=== PATIENT | female | born 1990 | race Caucasian/White ===

== ENCOUNTER → 2019-08-20 11:08 | Outpatient (CLI) | payer OTHER, SELFPAY ==
--- NOTE | 2019-08-20 | DI.US.S_ITS ---
PROCEDURE: US PELVIC COMPLETE INDICATIONS: MISSED TECHNIQUE: Real-time scanning was performed of the pelvic organs, with image documentation. Additional endovaginal scanning was necessary due to incomplete visualization of the adnexal and endometrial structures by transabdominal scanning. COMPARISON: None. FINDINGS: Transabdominal scanning: Limited scanning through the kidneys shows no hydronephrosis. No pathologic free abdominal or pelvic fluid. Endovaginal scanning: Uterus: Uterus is normal in size at 5.0 x 4.4 x 6.0 cm. Endometrium demonstrates appears irregular. There is increased vascularity surrounding the endometrium. There is fluid in the endometrial cavity measuring 2.1 x 1.1 x 1.5 cm. Ovaries: There is a large complex cyst in right ovary measuring 6.2 x 4.6 x 5.8 cm. Right ovary measures 5.1 x 6.4 x 6.3 cm. Left ovary measures 2.0 x 2.4 x 2.1 cm. There is both arterial and venous flow to both ovaries. IMPRESSION: 1. Endometrium appears irregular with increased vascularity surrounding endometrium. There is fluid in the endometrial cavity measuring 2.1 x 1.1 x 1.5 cm. Cannot rule out retained products of conception. Differential diagnoses include molar and endometritis. Please correlate clinically. 2. A large complex cyst in right ovary measuring 6.2 x 4.6 x 5.8 cm. Dictated by: Luna Garcia M.D. on 08/20/2019 at 12:20 Approved by: Luna Garcia M.D. on 08/20/2019 at 12:53
== END ==
PROVIDERS: Family Provider Physician Assistant; PCP Nurse Practitioner Family; Referring Provider Nurse Practitioner Family; Visit Provider Nurse Practitioner Obstetrics & Gynecology
DX: O02.1 Missed abortion (principal); N83.291 Other ovarian cyst, right side
CPT/HCPCS: 76830; 76856

== ENCOUNTER → 2020-02-15 09:14 | Outpatient (CLI) | payer OTHER, SELFPAY ==
--- NOTE | 2020-02-15 | DI.US.S_ITS ---
PROCEDURE: US OB >= 14 WEEKS FETUS INDICATIONS: ANATOMICAL SURVEY OUTSIDE/PRIOR DATING DATA: Last menstrual period (LMP): 09/28/19. LMP-based estimated date of delivery (JERRI): 07/04/20 . First dating scan (date and location): This examination . Estimated date of delivery (JERRI) from first dating scan: 07/03/20 TECHNIQUE: Real-time scanning was performed of the fetus, with image documentation and biometric measurements. Endovaginal scanning: Not performed COMPARISON: None. FINDINGS: General: A single living intrauterine gestation is present. Presentation: Variable. Placenta: Placental position is posterior , without previa. Amniotic fluid index: 15.9 cm cm, normal range is 5-24 cm. Largest pocket 6.1 cm heart rate: 147 beats per minute. Maternal cervical canal: 3.1 cm long. Normal lower limit is 2.5 cm. biometrics: Biparietal diameter: 4.9 cm, 20 weeks 5 days Head circumference: 17.4 cm, 19 weeks 6 days Abdominal circumference: 14.5 cm, 19 weeks 6 days Femur length: 3.2 cm, 19 weeks 6 days Estimated gestational age from initial scan: not applicable. Composite gestational age from present scan: 20 weeks 1 day Estimated weight and percentile: 317 g, 37th percentile Measurement variability for biometric dating: +/- 7 days from 14 weeks to 15 weeks 6 days gestation, +/- 10 days from 16 weeks to 21 weeks 6 days gestation, +/- 2 weeks from 22 weeks to 27 weeks 6 days gestation, +/- 3 weeks for 28 weeks gestation or later. weight reference: 4500 g or EFW >90/95% is considered macrosomia or large for gestational age. EFW <10% is small for gestational age. EFW 5% or less is considered intra-uterine growth restriction. Anatomic survey: Neuro: Ventricles are non-dilated at less than 10 mm. Cisterna magna is normal at 3-11 mm. Cerebellum is normal in size and morphology. Nuchal skin fold: Prominent measuring 5.2 mm. Technically normal at less than 6 mm between 14-21 weeks gestational age. Face: Nose and lips, facial profile are normal. Spine: No evidence for spina bifida. Heart: 4-chambered heart is present, with normal ventricular outflow tracts. Diaphragm: Diaphragm is intact. Stomach: Left-sided stomach is present. Kidneys: No hydronephrosis. Normal is less than 5 mm in 2nd trimester, less than 7 mm in 3rd trimester. Cord: 3-vessel cord has orthotopic insertion. Bladder: Normal in size. Extremities: All 4 extremities identified. IMPRESSION: Single living intrauterine fetus in variable presentation. Estimated gestational age by today's ultrasound measurements equals 20 weeks 1 day, concordant with LMP as above. Normal anatomic survey. Dictated by: Abimael Paris M.D. on 02/15/2020 at 12:42 Approved by: Abimael Paris M.D. on 02/15/2020 at 17:44
== END ==
PROVIDERS: Family Provider Physician Assistant; PCP Nurse Practitioner Family; Referring Provider Nurse Practitioner Obstetrics & Gynecology; Visit Provider Nurse Practitioner Obstetrics & Gynecology
DX: Z36.89 Encounter for other specified antenatal screening (principal); Z3A.20 20 weeks gestation of pregnancy
CPT/HCPCS: 76811

== ENCOUNTER → 2020-04-04 07:11 | Outpatient (CLI) | payer OTHER, SELFPAY ==
[2020-04-04 08:21] LABS: Hematocrit 37.7 % (36-46); Mean Corpuscular HGB Conc 34.5 % (30-36); Mean Corpuscular Hemoglobin 32.7 PG (26-34); Mean Corpuscular Volume 94.7 fL (80-100); Platelet Count 156 X10^3/uL (150-400); Red Blood Cell Count 3.97 X10^6/uL (4.0-5.2); Red Cell Distribution Width 12.9 % (11.6-14.8); White Blood Cell Count 10.8 X10^3/uL (4.5-11.0)
[2020-04-04 09:16] LABS: Glucose Fasting 71 mg/dL (70-100)
[2020-04-04 09:55] LABS: Glucose 1 Hour 101 mg/dL (70-170)
[2020-04-04 09:55] LABS: Glucose Tol Interpretation INTERPRETATION
[2020-04-04 11:05] LABS: Glucose 2 Hour 65 mg/dL (70-140)
== END ==
PROVIDERS: Family Provider Physician Assistant; PCP Nurse Practitioner Family; Referring Provider Nurse Practitioner Obstetrics & Gynecology; Visit Provider Nurse Practitioner Obstetrics & Gynecology
DX: Z34.90 Encounter for supervision of normal pregnancy, unspecified, unspecified trimester (principal); Z13.1 Encounter for screening for diabetes mellitus; Z3A.26 26 weeks gestation of pregnancy
CPT/HCPCS: 36415; 82951; 82952; 85027

== ENCOUNTER → 2020-06-06 14:25 | Outpatient (ROUT) | payer OTHER, SELFPAY | PROVIDERS: Family Provider Physician Assistant; PCP Nurse Practitioner Family; Visit Provider Nurse Practitioner Obstetrics & Gynecology | DX: Z34.90 Encounter for supervision of normal pregnancy, unspecified, unspecified trimester (principal); Z36.85 Encounter for antenatal screening for Streptococcus B; Z3A.36 36 weeks gestation of pregnancy | CPT/HCPCS: 87081 ==

== ENCOUNTER 2020-07-03 10:02 | Outpatient (CLI) | payer OTHER, SELFPAY ==
[2020-07-03 10:46] LABS: Add Manual Diff / Slide Review NO; Basophils Absolute Auto 0 /uL (0-100); Basophils Percent Auto 0.3 % (0-2); Eosinophils Absolute Auto 0 /uL (0-450); Eosinophils Percent Auto 0.5 % (2-4); Hematocrit 40.2 % (36-46); Hemoglobin 13.7 g/dL (12.0-16.0); Lymphocytes Absolute Auto 2100 /uL (1100-4500); Lymphocytes Percent Auto 21.1 % (25-40); Mean Corpuscular HGB Conc 34.1 % (30-36); Mean Corpuscular Hemoglobin 32.4 PG (26-34); Monocytes Absolute Auto 700 /uL (0-900); Monocytes Percent Auto 7.1 % (3-14); Neutrophils Absolute Auto 7000 /uL (1500-7000); Platelet Count 136 X10^3/uL (150-400); Red Blood Cell Count 4.23 X10^6/uL (4.0-5.2); Red Cell Distribution Width 13.4 % (11.6-14.8); White Blood Cell Count 9.8 X10^3/uL (4.5-11.0)
--- NOTE | 2020-07-03 10:49 | PM.OBTRLD ---
Visit Information Visit Information Date of evaluation: 07/03/20 Primary OB Provider: Asha Dean On-call OB Provider: Asha Dean Reason for Evaluation: Yes other Comments/Additional reasons for admission: 30YO @ [id number] by LMP and early US presents for evlauation of elevated BP in clinic today. +Fm and mld, irregular ctx. No Vb or LOF. No HORTON, vision changes, RUQ pain or increased edema. Vital Signs Vital Signs: BP 133/92, [id number], RR16/min, T98.2F Temporal PFSH Medical History (Updated 07/03/20 @ 11:25 by Asha Dean CNM) Hypothyroid in , antepartum Surgical History (Updated 07/03/20 @ 10:54 by Asha Dean CNM) History of tonsillectomy Family History (Updated 07/03/20 @ 10:54 by Asha Dean CNM) Father Hypertension Social History (Updated 07/03/20 @ 10:54 by Asha Dean CNM) marital status: household members: spouse lives independently: Yes caregiver/support person: No housing: house education level: college occupational status: employed Review of Systems Review of Systems ROS: Yes All systems reviewed with the patient and are negative except as otherwise documented Exam Vital Signs (past 8 hours): See above. Serial BPs: 128/87, 126/87 Presentation: vertex Objective Labs Result Diagrams: 07/03/20 10:22 07/03/20 10:22 Labs: Laboratory Results - last 24 hr 07/03/20 10:22 WBC 9.8 RBC 4.23 Hgb 13.7 Hct 40.2 MCV 95.0 MCH 32.4 MCHC 34.1 RDW 13.4 Plt Count 136 L Neut % (Auto) 71.0 Lymph % (Auto) 21.1 L [place] % (Auto) 7.1 Eos % (Auto) 0.5 L Baso % (Auto) 0.3 Neut # (Auto) 7000 Lymph # (Auto) 2100 [place] # (Auto) 700 Eos # (Auto) 0 Baso # (Auto) 0 Evaluation Evaluation Baseline heart rate: 125 Variability: Moderate (11-25) monitor accelerations: Present monitor decelerations: Absent Contraction Frequency (minutes): 4 Uterine Contraction Intensity: Mild Category of Tracing: Reactive Cervical dilation (cm): 2 Cervical effacement (%): 80 station: -2 Laboratory results: Laboratory Tests 07/03/20 10:22 WBC 9.8 RBC 4.23 Hgb 13.7 Hct 40.2 MCV 95.0 MCH 32.4 MCHC 34.1 RDW 13.4 Plt Count 136 L Neut % (Auto) 71.0 Lymph % (Auto) 21.1 L [place] % (Auto) 7.1 Eos % (Auto) 0.5 L Baso % (Auto) 0.3 Neut # (Auto) 7000 Lymph # (Auto) 2100 [place] # (Auto) 700 Eos # (Auto) 0 Baso # (Auto) 0 Diagnosis, Plan/Disposition Final Diagnosis (1) Elevated BP without diagnosis of hypertension: Status: Acute Problem details: Discharge to home with routine precautions. Follow-up in clinic 07/05/20, as scheduled. (2) Thrombocytopenia affecting , antepartum: Status: Acute Problem details: will recheck on labor admission
[2020-07-03 10:58] LABS: Aspartate Aminotransferase 34 IU/L (14-36); BUN Creatinine Ratio 22.7 (6-22); Blood Urea Nitrogen 15 mg/dL (7-17); Estimated Glomerular Filt Rate > 60.0 mL/min (>60); Protein (Total) Urine Random 12 mg/dL (0-12); Protein Creatinine Ratio Urine 0.24 GRAM/24H; Uric Acid 5.3 mg/dL (2.5-6.2)
== END 2020-07-03 11:27 | disposition home or self-care (01) ==
LOC: LABOR 11:20 → OB 07-04 09:22
PROVIDERS: Family Provider Physician Assistant; PCP Nurse Practitioner Family; Referring Provider Nurse Practitioner Obstetrics & Gynecology; Visit Provider Nurse Practitioner Obstetrics & Gynecology
DX: O99.113 Other diseases of the blood and blood-forming organs and certain disorders involving the immune mechanism complicating pregnancy, third trimester (principal); R03.0 Elevated blood-pressure reading, without diagnosis of hypertension; Z3A.39 39 weeks gestation of pregnancy; D69.6 Thrombocytopenia, unspecified
CPT/HCPCS: 36415; 59025; 82570; 84156; 84450; 84550; 85025; G0378; G0379

== ENCOUNTER 2020-07-03 19:08 | Inpatient (IN) | payer OTHER, SELFPAY ==
--- NOTE | 2020-07-03 19:16 | PM.OBHP.1 ---
OB HPI Date/Time Date of admission: 07/03/20 Date Patient Seen: 07/03/20 Time Patient Seen: 19:00 History of Present Condition Chief complaint: EVAL OF LABOR : 2 Para: 0 Estimated Date of Delivery: 07/04/20 Estimated Gestational Age (weeks): 39.6 Narrative: Jacque Orr is a 30 year old female @ [id number] by LMP and early US who presents for evaluation of labor. Has been feeling mild contractions all afternoon. Went for a walk and noticed SROM, copious clear fluid, with a stronger contraction @1745. Contractions immediately strengthened and have been every 2 minutes. Having trouble coping, breathing through strong contractions. Uncomplicated PN care w/ CNM. Planning lo intervention , requesting epidural now. , Julio, is present and supportive. History of Present care: good care, initiated at week # (8), number of visits (11) and pounds weight gain (39) Dating criteria: LMP confirmed by 1st trimester US Ultrasounds: normal mid trimester US Obstetrical complications: none and other Medical complications: other (hypothyroid- stable on levothyroxine) Narrative: Elevated BP without diagnosis of HTN in clinic today Preadmission Labs Blood type: A (+) positive -: Antibody screen: negative, GBS status: negative, HBsAG: negative, HIV: negative and RPR/VDLR: negative -: Chlamydia screen: not detected and Gonorrhea screen: not detected -: Rubella: immune HCT: 37.7 HCAB: negative 3 hr GTT: 2 hr (71/101/65) Prior (ies) History: 05/22/19: SAB @ 9wks Evaluation Evaluation Baseline heart rate: 120 Variability: Moderate (11-25) monitor accelerations: Present monitor decelerations: Early Contraction Frequency (minutes): 2 Uterine Contraction Intensity: Strong/Firm Status: Category l Cervical dilation (cm): 4 Cervical effacement (%): 90 station: -1 Comments: Gross SROM, clear PFSH Medical History Hypothyroid in , antepartum Surgical History History of tonsillectomy Family History Father Hypertension Social History marital status: household members: spouse lives independently: Yes caregiver/support person: No housing: house education level: college occupational status: employed Smoking Status: Never smoker Meds Home Medications and Allergies Home Medications Medication Instructions Recorded Confirmed Type levothyroxine [Synthroid] 75 mcg PO DAILY 07/03/20 07/03/20 History Allergies Allergy/AdvReac Type Severity Reaction Status Date / Time amoxicillin Allergy Intermediate Rash Verified 07/03/20 19:19 Review of Systems Review of Systems ROS: Yes All systems reviewed with the patient and are negative except as otherwise documented Exam Vital Signs (past 8 hours): BP 127/85, HR 71bpm, T 36.0C Temporal Resp Effort & Inspection: normal respiratory effort Auscultation: clear to auscultation bilaterally Cardio Rate: regular rate Rhythm: regular rhythm Heart Sounds: S1 normal and S2 normal Presentation: vertex Objective Labs Result Diagrams: 07/03/20 19:30 Assessment and Plan Assessment and Plan Assessment and Plan narrative: A:Term [place] in active labor GBS prophylaxis not indicated Cat I FHR P: Admit, routine orders w/ STAT COVID screening now. Epidural MARGIE. Labor support PRN. Anticipate NSVB.
[2020-07-03 19:44] VITALS: BP 127/85
[2020-07-03 19:59] LABS: Add Manual Diff / Slide Review NO; Basophils Absolute Auto 100 /uL (0-100); Basophils Percent Auto 0.8 % (0-2); Eosinophils Absolute Auto 0 /uL (0-450); Eosinophils Percent Auto 0.2 % (2-4); Hematocrit 43.4 % (36-46); Lymphocytes Absolute Auto 2800 /uL (1100-4500); Lymphocytes Percent Auto 19.3 % (25-40); Mean Corpuscular HGB Conc 34.6 % (30-36); Mean Corpuscular Hemoglobin 32.8 PG (26-34); Mean Corpuscular Volume 94.7 fL (80-100); Monocytes Absolute Auto 800 /uL (0-900); Monocytes Percent Auto 5.3 % (3-14); Neutrophils Absolute Auto 10800 /uL (1500-7000); Neutrophils Percent Auto 74.4 % (50-75); Platelet Count 169 X10^3/uL (150-400); Red Blood Cell Count 4.58 X10^6/uL (4.0-5.2); Red Cell Distribution Width 13.3 % (11.6-14.8); White Blood Cell Count 14.5 X10^3/uL (4.5-11.0)
[2020-07-03 20:11] LABS: COVID19 -Nasal RAPID Negative (Negative)
--- NOTE | 2020-07-03 22:01 | P.PCNOB_ITS ---
Labor & Delivery Delivery date: 07/03/20 Intrapartal Events: None Cervical ripening method: none Induction method: none Delivery monitor: external FHT and external uterine Route of delivery: L&D Laceration Description: Vaginal - 2nd Degree Delivery repair: chromic (3.0) Anesthesia Type: Epidural Narrative: Patient progressed quickly to spontaneous urge to push and was 9cm when anesthesia arrived. Was motivated for epidural enough to maintain good positioning during placement and achieved good relief. Was checked after epidural placement: C/C/+1. Enjoyed epidural for a few minutes, then began pushing with good progress with minimal coaching. NSVB of a vigorous baby girl in KWAME position w/ manual reduction of a compound left hand. There was no NC and no additional maneuvers needed for delivery of the shoulders. was placed on maternal abdomen by FOB who assisted after the shoulders delivered. N ewborn was placed on maternal chest for drying and skin to skin. 30 units of pitocin in 500mL LR was started at 250mL/hr for AMTSL. After cessation of pulsation, the cord was double clamped by CNM and cut by FOB. Hospital cord blood hold sample was collected. Gentle cord traction and single maternal push led to spontaneous, Schultze delivery of an apparently intact placenta, membranes and 3VC. Fundus immediately firm and bleeding minimal. Inspection revealed a short 2nd degree vaginal laceration which was repaired w/ 3.0 Chromic in the usual fashion under good epidural anesthesia. QBL 225mL. both mother and baby stable and skin to skin as I left the room. Baby 1: Infant gender: Female Presentation: vertex Position: Left Occiput Anterior Placenta delivery description: Spontaneous Cord Vessel Description: 3 Vessels score (1 min): 9 score (5 min): 9 weight: 3.4 kg Narrative: 3386grams/7#7.4oz Plan for aftercare: Routine care
[2020-07-03] MEDS: KETOROLAC 30 MG/ML VIAL IV (23:13)
[2020-07-04] MEDS: IBUPROFEN 600 MG TABLET PO ×2 (05:05→14:34)
[2020-07-04] MEDS: LEVOTHYROXINE 75 MCG TABLET PO (07:59)
[2020-07-04] MEDS: PRENATAL VIT,CALC/IRON/FOLIC 1 TABLET 1 TAB PO (08:05)
[2020-07-04] MEDS: DOCUSATE 100 MG CAPSULE PO (08:05)
--- NOTE | 2020-07-04 10:20 | PM.OBDS.1 ---
Discharge Providers Provider Date of admission: 07/03/20 19:08 Discharge Date: 07/04/20 Primary care physician: AALIYAH Valentine Consults: 07/04/20 21:55 Consult to Engineer Third Assistant Routine Comment: Discharge provider: Asha Dean CNM Summary Discharge Diagnosis (1) Second degree perineal laceration during delivery: Status: Acute Problem Details: Perineum intact. 2nd degree vaginal laceration. Ambulating in room, showered and dressed in her own clothes. Voiding and ambulating independently. Tolerating general diet. Pain well controlled w/ PO meds. Lochia light, no clots. is improving, using nipple shield and working w/ sleepy baby, max 10 minute feeds. Time Spent with Patient Time attestation: Total time spent providing and/or coordinating discharge services: Objective Labs Result Diagrams: 07/03/20 19:30 Labs: Laboratory Results - last 24 hr 07/03/20 07/03/20 07/03/20 19:30 19:30 19:30 WBC 14.5 H RBC 4.58 Hgb 15.0 Hct 43.4 MCV 94.7 MCH 32.8 MCHC 34.6 RDW 13.3 Plt Count 169 Neut % (Auto) 74.4 Lymph % (Auto) 19.3 L [place] % (Auto) 5.3 Eos % (Auto) 0.2 L Baso % (Auto) 0.8 Neut # (Auto) 20357 H Lymph # (Auto) 2800 [place] # (Auto) 800 Eos # (Auto) 0 Baso # (Auto) 100 SARS-CoV-2 (PCR) Negative Blood Type A Positive Antibody Screen Negative Exam Vital Signs (past 8 hours): BP 120/69, HR 66bpm, RR 16/min, T97.9F Temporal Other: Fundus firm @ u-3, lochia scant, minimal perineal edema Discharge Plan Discharge Plan Patient Disposition: Home Discharge orders & Medications Prescriptions: New ibuprofen 600 mg Tablet 600 mg PO Q6HR PRN (Reason: Pain, Mild (1-3)) 14 Days Qty: 60 RF: 0 Continued levothyroxine [Synthroid] 75 mcg tablet 75 mcg PO DAILY RF: 0 Follow up/Referrals: Eufemia Woods ARNP [Primary Care Provider] - Asha Dean CNM [[facility] [employer] [facility]] - (Follow-up @ 2 weeks by Telehealth, as scheduled Follow-up @ 6 weeks in office, as scheduled) Diet/Activity/Treatments Diet: Regular Activity: pelvic rest x 6 weeks Skin/Wound/Dressing Care Report to your healthcare provider any signs of infection, such as:: chills, fever, increased pain, unusual drainage and unusual redness Visit Report/Discharge Packet Instructions: DI for Depression Discharge Data Primary Care Provider: Eufemia Woods
[2020-07-04 11:44] VITALS: BP 108/76; PULSE 64; RESP 17; TEMP 36.7
[2020-07-04 12:04] VITALS: BP 108/76; PULSE 64; RESP 17; TEMP 36.7
[2020-07-04] MEDS: LANOLIN OINT 7 GM 1 APPLIC TOP (12:36)
[2020-07-04 14:34] VITALS: TEMP 37.1
[2020-07-04 14:40] VITALS: BP 133/87; PULSE 64; RESP 17; TEMP 37.1
== END 2020-07-04 18:18 | disposition home or self-care (01) | DRG 806 ==
PROVIDERS: Admitting Provider Nurse Practitioner Obstetrics & Gynecology; Family Provider Physician Assistant; PCP Nurse Practitioner Family; Referring Provider Nurse Practitioner Obstetrics & Gynecology; Visit Provider Nurse Practitioner Obstetrics & Gynecology
DX: O32.6XX0 Maternal care for compound presentation, not applicable or unspecified (principal); O99.12 Other diseases of the blood and blood-forming organs and certain disorders involving the immune mechanism complicating childbirth; Z37.0 Single live birth; Z3A.39 39 weeks gestation of pregnancy; O70.1 Second degree perineal laceration during delivery; D69.6 Thrombocytopenia, unspecified; R03.0 Elevated blood-pressure reading, without diagnosis of hypertension
CPT/HCPCS: 01967; 36415; 59025; 59050; 82570; 84156; 84450; 84550; 85025; 86850; 86900; 86901; 87635; C9803; G0379; J1885

== ENCOUNTER → 2020-10-31 11:13 | Outpatient (CLI) | payer OTHER, SELFPAY ==
[2020-10-31 13:36] LABS: Thyroid Stimulating Hormone 0.871 uIU/mL (0.47-4.68)
== END ==
PROVIDERS: Family Provider Physician Assistant; PCP Nurse Practitioner Family; Referring Provider Nurse Practitioner Obstetrics & Gynecology; Visit Provider Nurse Practitioner Obstetrics & Gynecology
DX: E03.9 Hypothyroidism, unspecified (principal)
CPT/HCPCS: 36415; 84436; 84443

== ENCOUNTER → 2022-10-14 10:12 | Outpatient (CLI) | payer OTHER, SELFPAY ==
--- NOTE | 2022-10-14 | DI.US.S_ITS ---
PROCEDURE: US OB >= 14 WEEKS FETUS INDICATIONS: ANATOMY OUTSIDE/PRIOR DATING DATA: Last menstrual period (LMP): 05/16/2022. LMP-based estimated date of delivery (JERRI): 02/20/2023. First dating scan (date and location): 10/14/2022. Estimated date of delivery (JERRI) from first dating scan: 02/19/2023. The calculations are made using the working JERRI of 02/20/2023. TECHNIQUE: Real-time scanning was performed of the fetus, with image documentation and biometric measurements. Endovaginal scanning: Not performed COMPARISON: [facility], OB >= 14 WEEKS FETUS, 02/15/2020, 9:28. FINDINGS: General: A single living intrauterine gestation is present. Presentation: Vertex. Placenta: Placental position is anterior , without previa. Lower placental edge 2 cm or less from internal cervical os qualifies as low lying placenta. Amniotic fluid index: 13.7 cm, normal range is 5-24 cm. Single deepest vertical pocket is 4.4 cm. heart rate: 150 beats per minute. Maternal cervical canal: 4.9 cm long. Normal lower limit is 2.5 cm. biometrics: Biparietal diameter: 5.1 cm, 21 weeks 3 days Head circumference: 19.1 cm, 21 weeks 3 days Abdominal circumference: 17.6 cm, 22 weeks 4 days Femur length: 3.6 cm, 21 weeks 4 days Clinically estimated gestational age: 21 weeks 4 days Composite gestational age from present scan: 21 weeks 5 days Estimated weight and percentile: 471 g, 69th percentile Anatomic survey: Neuro: Ventricles are non-dilated at less than 10 mm. Cisterna magna is normal at 3-11 mm. Cerebellum is normal in size and morphology. Nuchal skin fold: Normal at less than 6 mm between 14-21 weeks gestational age. Face: Nose and lips, facial profile are normal. Spine: No evidence for spina bifida. Heart: 4-chambered heart is present, with normal ventricular outflow tracts. Diaphragm: Diaphragm is intact. Stomach: Left-sided stomach is present. Kidneys: No hydronephrosis. Normal is less than 5 mm in 2nd trimester, less than 7 mm in 3rd trimester. Cord: 3-vessel cord has orthotopic insertion. Bladder: Normal in size. Extremities: All 4 extremities identified. IMPRESSION: 1. Living 2nd trimester intrauterine with no sonographic evidence of complications. Current ultrasound age is 1 day greater than clinical age based on LMP. 2. Normal 2nd trimester anatomy study. We strive to produce accurate, complete, and clear reports of imaging services. To assist us in improving patient care, this report was composed using standard report templates and voice recognition software. Therefore, it may contain abnormal punctuation, insertions and/or omissions. Occasional wrong-word or sound-alike substitutions may occur. Though we review the report and make efforts to correct it, we do recommend that the report be read carefully in proper context to recognize any text inaccuracies. Dictated by: Quan Kong M.D. on 10/14/2022 at 16:14 Approved by: Quan Kong M.D. on 10/14/2022 at 16:19
== END ==
PROVIDERS: Family Provider Physician Assistant; PCP Nurse Practitioner Family; Referring Provider Nurse Practitioner Obstetrics & Gynecology; Visit Provider Nurse Practitioner Obstetrics & Gynecology
DX: Z34.92 Encounter for supervision of normal pregnancy, unspecified, second trimester (principal); Z3A.21 21 weeks gestation of pregnancy
CPT/HCPCS: 76811

== ENCOUNTER 2023-02-13 01:02 | Inpatient (IN) | payer OTHER, SELFPAY ==
--- NOTE | 2023-02-13 01:23 | PM.OBHP.1 ---
OB HPI Date/Time Date of admission: 02/13/23 Date Patient Seen: 02/13/23 Time Patient Seen: 01:24 History of Present Condition Chief complaint: labor : 3 Para: 1 Estimated Date of Delivery: 02/20/23 Estimated Gestational Age (weeks): 39w0d Narrative: Jacque Orr is a 32 year old female at 39w0d by early ultrasound corresponding with LMP and long (30-35 day) menstrual cycles. She has had a complicated by low potassium, hypothyroidism and has a history of depression. She takes daily potassium, 50 mg sertraline and 50 mcg of levothyroxine. Jacque has one daughter, born term in 2020 and a history of a miscarriage in 2019. She tested GBS negative at 36 weeks and her blood type is A positive. Her first labor was relatively fast, so she has arrived this time before things are too crazy. [place] baby drop into her pelvis Tuesday. Contractions began between 1999 and 2099, but were irregular at that time. She called CNM approx 0030 with regular contractions becoming more intense, wanting admission to the hospital. Membrane are intact. She is undecided about epidural at this time. Baby is a surprise sex! History of Present care: good care, initiated at week # (7), number of visits (10) and pounds weight gain (40) Dating criteria: based on 1st trimester US only (confirmed by LMP with long cycles) Ultrasounds: normal 1st trimester US and normal mid trimester US Obstetrical complications: none Medical complications: psychiatric (history of depression, still taking sertraline) and other (Hypothyroidism in ) Preadmission Labs Blood type: A (+) positive -: Antibody screen: negative, Cystic fibrosis screen: unknown, GBS status: negative, HBsAG: negative, HIV: negative, HSV 1: negative, HSV 2: negative and RPR/VDLR: negative -: Chlamydia screen: not detected and Gonorrhea screen: not detected -: Rubella: immune and Varicella: immune HCT: 35.9 (at 28 weeks) PAP: Normal (HPV negative) Quad screen: Normal (MsAFP negative) 1 hr GTT: 79 Prior (ies) History: 05/2019 SAB at 9 weeks 06/2020 NSVB at 39 weeks of baby girl, 3385g Evaluation Evaluation Baseline heart rate: 145 Variability: Moderate (11-25) monitor accelerations: Present Monitor Decelerations: Absent Contraction Frequency (minutes): 2 (2-5) Uterine Contraction Intensity: Moderate Status: Category l Comments: Jacque declines SVE at this time [facility] Medical History (Updated 02/13/23 @ 01:41 by Rosana Adam CNM, [employer]) Depression Elevated BP without diagnosis of hypertension Hypothyroid in , antepartum depression associated with first Second degree perineal laceration during delivery Thrombocytopenia affecting , antepartum Surgical History History of tonsillectomy Family History Father Hypertension Social History marital status: household members: spouse lives independently: Yes caregiver/support person: No housing: house education level: college occupational status: employed Smoking Status: Never smoker Meds Home Medications and Allergies Home Medications Medication Instructions Recorded Confirmed Type levothyroxine 75 mcg tablet 75 mcg PO DAILY 07/03/20 07/03/20 History (Synthroid) sertraline 50 mg PO DAILY depression 02/13/23 02/13/23 History Allergies Allergy/AdvReac Type Severity Reaction Status Date / Time amoxicillin Allergy Intermediate Rash Verified 07/03/20 19:19 Review of Systems Review of Systems Narrative: All negative except as mentioned in HPI. OB Exam Vital signs Blood Pressure: 133/86 Pulse Rate: 69 Respiratory Rate: 18 Temperature: 97.2 F Resp Effort & Inspection: normal respiratory effort, able to speak in complete sentences and symmetric chest movement Auscultation: clear to auscultation bilaterally Cardio Rate: regular rate Rhythm: regular rhythm Presentation: vertex Estimated Weight (lbs): 8 Amniotic Fluid: no fluid Objective Labs 02/13/23 01:45 Assessment and Plan Assessment and Plan Assessment and Plan narrative: Term in early labor GBS neg Rh pos History of precipitous labor Early labor Hypothyroidism in History of depression Depression FHR Cat 1 Admit to L&D Sertraline daily at 2100 Levothyroxine daily at 0600 Intermittent auscultation d/t Cat 1 strip on admission Pain medication as desired SVE planned if contractions slow Anticipate NSVB
[2023-02-13 01:55] LABS: Add Manual Diff / Slide Review NO; Basophils Absolute Auto 100 /uL (0-100); Basophils Percent Auto 0.8 % (0-2); Eosinophils Absolute Auto 0 /uL (0-450); Eosinophils Percent Auto 0.4 % (2-4); Hematocrit 35.2 % (36-46); Hemoglobin 12.3 g/dL (12.0-16.0); Lymphocytes Absolute Auto 2400 /uL (1100-4500); Lymphocytes Percent Auto 24.2 % (25-40); Mean Corpuscular HGB Conc 34.8 % (30-36); Mean Corpuscular Hemoglobin 31.5 PG (26-34); Mean Corpuscular Volume 90.5 fL (80-100); Monocytes Absolute Auto 800 /uL (0-900); Monocytes Percent Auto 8.1 % (3-14); Neutrophils Absolute Auto 6500 /uL (1500-7000); Neutrophils Percent Auto 66.5 % (50-75); Platelet Count 175 X10^3/uL (150-400); Red Cell Distribution Width 12.8 % (11.6-14.8); White Blood Cell Count 9.7 X10^3/uL (4.5-11.0)
[2023-02-13 01:56] VITALS: BP 133/86; PULSE 69; RESP 18; TEMP 36.2
[2023-02-13 02:43] VITALS: BP 133/86
--- NOTE | 2023-02-13 04:20 | PM.OBPRVD ---
Labor & Delivery Delivery date: 02/13/23 Intrapartal Events: Precipitous Labor < 3 hours Cervical ripening method: none Induction method: none Delivery monitor: external FHT Route of delivery: L&D Laceration Description: None Quantitative Blood Loss: 150 Anesthesia Type: None (epidural being prepared when SROM) Narrative: I was called to the room when Jacque became uncomfortable with lots of pressure in her rectum and was requesting epidural. RN prepared her for epidural, and while waiting for anesthesia, contractions became even more intense. While sitting for epidural, but prior to placement, Jacque felt a pop with SROM, laid down and vertex was visible at introitus. Jacque felt the spontaneous urge to push at 0338 and pushed effectively for 1 contraction to deliver the head, and then with the second contraction, NSVB of baby at 0342, shoulders delivered easily. Baby was placed on maternal abdomen when Jacque was ready to receive him. Apgars 9/9. Placenta delivered spontaneously with maternal efforts and appeared to be intact. 3 vessel cord clamped and cut by Julio at 10 minutes of life after cord pulsing had stopped. Cord blood collected for blood typing. Perineum inspected and found to be intact. Blood loss measured and estimated loss is 150 mL. Mom and baby left stable and is being initiated. Jacque and Julio are thrilled to meet their son. Rosnaa FISCHER, EMANI, IBCLC Baby 1: Infant gender: Male Presentation: vertex Position: Right Occiput Anterior Placenta delivery description: Spontaneous Cord Vessel Description: 3 Vessels score (1 min): 9 score (5 min): 9 Plan for aftercare: Routine care
--- NOTE | 2023-02-13 04:38 | P.DS_ITS ---
Discharge Providers Provider Date of admission: 02/13/23 01:02 Discharge Date: 02/13/23 Primary care physician: AALIYAH Valentine Consults: 02/13/23 01:17 Consult to Anesthesiology Urgent Comment: Consulting Provider: Anesthesiologist Reason for consultation: Epidural Has provider been notified: No Discharge provider: Rosana Adam CNM, ARNP Summary Hospital Course Date Patient Seen: 02/13/23 Time Patient Seen: 16:15 Diagnoses: Z34.04, Z39.1, Hospital Course: Jacque arrived in early labor. Progressed well without interventions or labor augmentation for precipitous NSVB. Normal course. . Peripartum Data Delivery Method: Natural Vaginal Laceration Description: None [place] 1: Gender: Male Disposition of : home Status at Discharge Cognitive/behavioral status at discharge: oriented Time Spent with Patient Time attestation: Total time spent providing and/or coordinating discharge services: Objective Labs 02/13/23 01:45 Labs: Laboratory Results - last 24 hr 02/13/23 02/13/23 01:45 01:45 WBC 9.7 RBC 3.90 L Hgb 12.3 Hct 35.2 L MCV 90.5 MCH 31.5 MCHC 34.8 RDW 12.8 Plt Count 175 Neut % (Auto) 66.5 Lymph % (Auto) 24.[address] [place] % (Auto) 8.1 Eos % (Auto) 0.4 L Baso % (Auto) 0.8 Neut # (Auto) 6500 Lymph # (Auto) 2400 [place] # (Auto) 800 Eos # (Auto) 0 Baso # (Auto) 100 Blood Type A Positive Antibody Screen Negative Exam Vital Signs (past 8 hours): - 02/13/23 01:56 02/13/23 02:43 Temperature 97.2 F L Pulse Rate 69 Respiratory Rate 18 Blood Pressure 133/86 133/86 Narrative Exam Narrative: Jacque doing well . Requesting early discharge. Const General: healthy appearing and comfortable Nutritional Appearance: well nourished Eyes General: appearance normal, both eyes and all related structures Chest Breast inspection: normal inspection of the breasts Resp Effort & Inspection: normal respiratory effort and able to speak in complete sentences Skin General: no rashes or lesions noted and warm Neuro General: patient alert, patient awake and patient oriented x3 Extrem General: normal to inspection and full ROM (no edema in LE) Psych Appearance: grossly normal Mental Status: mental status grossly normal Speech and Movement: speech and movement normal Mood: congruent mood Affect: normal affect Attitude: cooperative Thought Process: normal Thought Content: normal Judgment: judgment good Discharge Plan Discharge Plan Patient Disposition: Home Provider Discharge Comment: See ClientCare Education tab for instructions and care information. Discharge orders & Medications Prescriptions: Continued levothyroxine [Synthroid] 75 mcg tablet 75 mcg PO DAILY sertraline 50 mg 50 mg PO DAILY Follow up/Referrals: Eufemia Woods ARNP [Primary Care Provider] - Rosana Adam, AALIYAH JOAQUIN [[employer]] - 1 Day (Clinic visit scheduled for tomorrow (02/14) at 0900. Follow up at 2 and 6 weeks.) Diet/Activity/Treatments Diet comment: Increase hydration and fiber to assure soft bowel movements. Activity: Low rocha for 2 weeks Cold/Heat Therapy: as needed for pain Skin/Wound/Dressing Care Skin care: usual care Report to your healthcare provider any signs of infection, such as:: chills, fever, unusual drainage and unusual redness Visit Report/Discharge Packet Stand Alone Forms: Patient Portal/API, Stroke Signs & Symptoms Discharge Data Primary Care Provider: Eufemia Woods Attending Provider: Rosana Adam Admit Date/Time: 02/13/23 01:02
[2023-02-13] MEDS: LEVOTHYROXINE 75 MCG TABLET PO (07:45)
[2023-02-13] MEDS: DOCUSATE 100 MG CAPSULE PO (08:06)
[2023-02-13] MEDS: IBUPROFEN 600 MG TABLET PO ×2 (08:15→14:38)
[2023-02-13 17:02] VITALS: BP 124/69; PULSE 70; RESP 16; TEMP 36.4
== END 2023-02-13 17:30 | disposition home or self-care (01) | DRG 807 ==
PROVIDERS: Admitting Provider Advanced Practice Midwife; Family Provider Physician Assistant; PCP Nurse Practitioner Family; Referring Provider Advanced Practice Midwife; Visit Provider Advanced Practice Midwife
DX: O62.3 Precipitate labor (principal); Z37.0 Single live birth; O99.284 Endocrine, nutritional and metabolic diseases complicating childbirth; E03.9 Hypothyroidism, unspecified; Z3A.39 39 weeks gestation of pregnancy; O99.344 Other mental disorders complicating childbirth; O90.6 Postpartum mood disturbance
CPT/HCPCS: 36415; 59050; 85025; 86850; 86900; 86901; G0378; G0379